=== PATIENT | female | born 1945 | race African-American/Black ===

== ENCOUNTER 2016-04-04 10:55 | Emergency (ER) | payer MEDICAID ==
[2016-04-04] MEDS ORDERED: DUONEB 0.5 MG-3 MG/3 ML SOLN IH ONE (12:06)
[2016-04-04 12:17] LABS: Basophils % (Auto) 0.9 % (0.0-1.8); Eosinophils % (Auto) 1.9 % (0.0-4.3); Hematocrit 38.3 % (30.3-42.9); Hemoglobin 12.6 gm/dl (10.1-14.3); Mean Corpuscular HGB Conc 33 % (30-34); Mean Corpuscular Hemoglobin 30 pg (28-32); Mean Corpuscular Volume 91 fl (79-97); Platelet Count 268 K/mm3 (140-440); Red Blood Count 4.21 M/mm3 (3.65-5.03); Red Cell Distribution Width 12.5 % (13.2-15.2); White Blood Count 6.2 K/mm3 (4.5-11.0)
--- NOTE | 2016-04-04 12:25 | Emergency Department Report ---
HPI - General Chief Complaint: Abdominal Pain Time Seen by Provider: 04/04/16 11:52 - HPI HPI: Chief complaint: Cough, abdominal pain HPI: Patient is a 71-year-old Upper Sor[place] female with a history of hypertension and elevated cholesterol is been having a cough with for chest pain for the last 3 days. Patient states she is coughing so much that she does feel short of breath at times. Patient has been having chills and has been coughing up yellow-brown sputum. Patient denies any nausea vomiting or diarrhea and also denies constipation and states her bowels are normal. Patient is having some dysuria. Patient states her head hurts only when she coughs. Mode of arrival: [EMS] Source: [Patient] and [family member] Began: 3 days ago Duration: 3 days Context: Patient is a nonsmoker with no history of asthma or COPD Quality: Pleuritic chest pain, dull lower abdominal pain left greater than right and dull headache in the back of her head only when she coughs when she coughs Severity: 6 out of 10 Improved with: Nothing Worsened with: See above Associated signs and symptoms: See above ED Past Medical Hx - Past Medical History Hx Hypertension: Yes Hx Diabetes: Yes Hx GERD: Yes Hx Arthritis: Yes Hx Psychiatric Treatment: Yes (PTSD) Additional medical history: hyperlipidemia,glaucoma - Surgical History Past Surgical History?: No - Social History Smoking Status: Never Smoker Substance Use Type: None - Medications Home Medications: Home Medications Medication Instructions Recorded Confirmed Last Taken Type AtorvaSTATin [Lipitor] 40 mg PO DAILY 11/15/14 11/15/14 Unknown History Famotidine [Pepcid] 20 mg PO BID 11/15/14 11/15/14 Unknown History Nortriptyline [Pamelor] 10 mg PO QHS 11/15/14 11/15/14 Unknown History amLODIPine [Norvasc] 5 mg PO DAILY 11/15/14 11/15/14 Unknown History ALBUTEROL Inhaler [ProAir HFA 2 puff IH QID PRN #1 inhalation 04/04/16 Unknown Rx Inhaler] Azithromycin [Zithromax TAB] 500 mg PO QDAY #3 tablet 04/04/16 Unknown Rx Benzonatate [Tessalon Perles] 100 mg PO Q6HR #14 capsule 04/04/16 Unknown Rx ED Review of Systems ROS: Stated complaint: CHEST AND ABD PAIN Other details as noted in HPI ROS Constitutional: No fever ENT: No uri symptoms Cardiovascular: See HPI Respiratory: See HPI GI: No nausea vomiting or diarrhea : No dysuria frequency or urgency, Skin: No rash Neuro: No focal weakness or numbness Psych: No depression Broderick/lymph: No edema Physical Exam - Physical Exam Vital Signs: Vital Signs 04/04/16 11:09 Pulse Rate 70 Respiratory 16 Rate Blood Pressure 140/90 O2 Sat by Pulse 99 Oximetry Physical Exam: GENERAL: The patient is a thin elderly [place] Sor[place] female with a frequent cough. HEENT: Normocephalic. Atraumatic. Extraocular motions are intact. Patient has moist mucous membranes. NECK: Supple. No meningitic signs are noted. There is no adenopathy noted. CHEST/LUNGS: Few expiratory wheezes and frequent coughing. There is no respiratory distress noted. HEART/CARDIOVASCULAR: Regular. There is no tachycardia. There is no gallop rub or murmur. ABDOMEN: Abdomen is soft, lower abdominal tenderness without rebound or guarding. Patient has normal bowel sounds. There is no abdominal distention. SKIN: There is no rash. There is no edema. There is no diaphoresis. NEURO: The patient is awake, alert, and oriented. The patient is cooperative. The patient has no focal neurologic deficits. The patient has normal speech. MUSCULOSKELETAL: There is no tenderness or deformity. There is no limitation range of motion. There is no evidence of acute injury. ED Course Vital Signs 04/04/16 11:09 Pulse Rate 70 Respiratory 16 Rate Blood Pressure 140/90 O2 Sat by Pulse 99 Oximetry - Reevaluation(s) Reevaluation #1: 04/04/16 Patient given a nebulizer treatment with improvement of her breathing. Reevaluation #2: 04/04/16 15:54 Patient given a [place] with improvement of her pain and coughing. ED Medical Decision Making - Lab Data Result diagrams: 04/04/16 11:44 04/04/16 11:44 Laboratory Tests 04/04/16 04/04/16 11:44 11:44 Troponin T < 0.010 Lipase 25 Urinalysis within normal limits. - EKG Data -: EKG Interpreted by Tx EKG shows normal: sinus rhythm Rate: normal (72) - EKG Data When compared to previous EKG there are: no significant change Interpretation: normal EKG - Radiology Data Radiology results: report reviewed (chest x-ray shows no acute process. CT abdomen shows no acute process.) Critical care attestation.: If time is entered above; I have spent that time in minutes in the direct care of this critically ill patient, excluding procedure time. ED Disposition Clinical Impression: Bronchitis, acute Qualifiers: Bronchitis organism: unspecified organism Qualified Code(s): J20.9 - Acute bronchitis, unspecified Disposition: DISCHARGED TO HOME OR SELFCARE Is pt being admited?: No Does the pt Need Aspirin: No Condition: Stable Instructions: Abdominal Pain (ED), Acute Bronchitis (ED) Prescriptions: ALBUTEROL Inhaler [ProAir HFA Inhaler] 2 puff IH QID PRN #1 inhalation PRN Reason: Shortness Of Breath Azithromycin [Zithromax TAB] 500 mg PO QDAY #3 tablet Benzonatate [Tessalon Perles] 100 mg PO Q6HR #14 capsule Referrals: PRIMARY CARE, [Primary Care Provider] - 3-5 Days Time of Disposition: 15:56
--- NOTE | 2016-04-04 12:57 | XRay Report ---
AP CHEST: HISTORY: Shortness of breath AP view of the chest demonstrates a normal mediastinal and cardiac contour with clear lungs and normal bony and soft tissue structures. IMPRESSION: Unremarkable AP chest.
[2016-04-04 13:30] LABS: Alanine Aminotransferase 14 units/L (7-56); Alkaline Phosphatase 113 units/L (35-129); Anion Gap 20 mmol/L; Bilirubin,Total 0.3 mg/dL (0.1-1.2); Blood Urea Nitrogen 10 mg/dL (7-17); Calcium 9.1 mg/dL (8.4-10.2); Carbon Dioxide 25 mmol/L (22-30); Glucose 99 mg/dL (65-100); Potassium 3.8 mmol/L (3.6-5.0); Sodium 141 mmol/L (137-145); Total Protein 8.2 g/dL (6.3-8.2)
[2016-04-04] MEDS ORDERED: NACL ONE (13:48)
[2016-04-04] MEDS ORDERED: NACL 0.9% 1000 ML IV ONE (13:48)
[2016-04-04] MEDS ORDERED: NORCO 10/325 ONE (14:46)
[2016-04-04] MEDS ORDERED: NORCO 5/325 PO ONE (14:51)
[2016-04-04] MEDS ORDERED: NORCO 5/325 ONE (14:51)
[2016-04-04 15:46] LABS: Bilirubin,Urine NEG (Negative); Blood,Urine NEG (Negative); Ketones,Urine NEG (Negative); Leukocyte Esterase,Urine NEG (Negative); Nitrite,Urine NEG (Negative); Protein,Urine <15 mg/dL mg/dL (Negative); Urobilinogen,Urine < 2.0 mg/dL (<2.0); WBC,Urine < 1.0 /HPF (0.0-6.0)
--- NOTE | 2016-04-04 15:51 | Cat Scan Report ---
FINAL REPORT PROCEDURE: CT ABDOMEN PELVIS W CON TECHNIQUE: Computerized axial tomography of the abdomen and pelvis was performed after the IV injection of iodinated nonionic contrast. Oral contrast was not administered limiting evaluation of the bowel. HISTORY: abdominal pain COMPARISON: None FINDINGS: Visualized lower thorax: Mild bibasilar subsegmental atelectasis. Liver: No focal abnormality. Spleen: Normal size and attenuation. Gallbladder and biliary system: Normal. Pancreas: Atrophic without focal lesion. Adrenals: Normal. Kidneys: Normal. GI tract: No bowel obstruction. Sigmoid diverticulosis. Appendix normal.. Lymph nodes and mesentery: Normal. Vasculature: Mild calcific atherosclerosis. No abdominal aortic aneurysm. Bladder: Normal. Reproductive organs: Hysterectomy. Peritoneum: No free fluid. Musculoskeletal structures: Degenerative changes of the spine. Other: None. IMPRESSION: No CT evident acute abdominal/pelvic pathology. Sigmoid diverticulosis. Atrophic pancreas Degenerative changes of the spine.
[2016-04-04 16:41] VITALS: BP 120/60
== END 2016-04-04 16:49 | disposition home or self-care (01) ==
LOC: ED 10:55
DX: J20.9 Acute bronchitis, unspecified (principal); R30.0 Dysuria; R07.2 Precordial pain; I10 Essential (primary) hypertension; E11.9 Type 2 diabetes mellitus without complications; K21.9 Gastro-esophageal reflux disease without esophagitis; M19.90 Unspecified osteoarthritis, unspecified site; E78.00 Pure hypercholesterolemia, unspecified; H40.9 Unspecified glaucoma
CPT/HCPCS: 36415; 71010; 74177; 80053; 81001; 83690; 84484; 85025; 93005; 93010; 94640; 96360; 96361; 99285; J7030; Q9967

== ENCOUNTER 2016-04-15 12:29 | Emergency (ER) | payer MEDICARE ==
--- NOTE | 2016-04-15 13:09 | XRay Report ---
Single view chest: Compared to 04/04/16. History: Shortness of breath. Findings: Borderline cardiomegaly. Trachea is midline. No consolidation, pneumothorax or pleural effusion. Impression: No acute cardiopulmonary findings.
[2016-04-15] MEDS ORDERED: DUONEB 0.5 MG-3 MG/3 ML SOLN IH ONE (13:15)
[2016-04-15] MEDS ORDERED: NACL 0.9% 1000 ML 1,000 ML IV ONE (13:15)
[2016-04-15 13:26] LABS: Basophils % (Auto) 0.9 % (0.0-1.8); Eosinophils % (Auto) 1.1 % (0.0-4.3); Hematocrit 39.6 % (30.3-42.9); Hemoglobin 13.2 gm/dl (10.1-14.3); Mean Corpuscular HGB Conc 33 % (30-34); Mean Corpuscular Hemoglobin 31 pg (28-32); Mean Corpuscular Volume 91 fl (79-97); Platelet Count 359 K/mm3 (140-440); Red Blood Count 4.34 M/mm3 (3.65-5.03); Red Cell Distribution Width 12.9 % (13.2-15.2); White Blood Count 8.8 K/mm3 (4.5-11.0)
--- NOTE | 2016-04-15 13:36 | Emergency Department Report ---
HPI - General Time Seen by Provider: 04/15/16 12:48 - HPI HPI: This is a 71-year-old [place] female who presents to the emergency department via EMS from home with complaint of shortness of breath, generalized weakness and cough that has been going on for the past 2 days. She has some intermittent chills and a subjective fever. Patient was recently here and diagnosed with bronchitis but said she had some resolution in the interim. She went to see her new PCP recently and was put on some cough medication but that did not seem to help. Patient does not have any history of VT, CVA, PE/DVT. She has a past medical history of bronchitis, hypertension, osteoporosis and GERD. No recent travel or sick contacts at home. She denies any chest pain, diaphoresis, back pain but does have a nonspecific burning sensation throughout her body. She also says that she feels very tired. ED Past Medical Hx - Past Medical History Hx Hypertension: Yes Hx Diabetes: Yes (EMS denied DM) Hx GERD: Yes Hx Arthritis: Yes Hx Psychiatric Treatment: Yes (PTSD) Additional medical history: hyperlipidemia,glaucoma - Surgical History Hx Appendectomy: ([facility]) - Social History Smoking Status: Unknown if ever smoked Substance Use Type: None - Medications Home Medications: Home Medications Medication Instructions Recorded Confirmed Last Taken Type AtorvaSTATin [Lipitor] 40 mg PO DAILY 11/15/14 04/04/16 Unknown History Famotidine [Pepcid] 20 mg PO BID 11/15/14 04/04/16 Unknown History Nortriptyline [Pamelor] 10 mg PO QHS 11/15/14 04/04/16 Unknown History amLODIPine [Norvasc] 5 mg PO DAILY 11/15/14 04/04/16 Unknown History Azithromycin [Zithromax TAB] 500 mg PO QDAY #3 tablet 04/04/16 Unknown Rx Benzonatate [Tessalon Perles] 100 mg PO Q6HR #14 capsule 04/04/16 Unknown Rx ALBUTEROL Inhaler [ProAir HFA 2 puff IH QID PRN #1 inhalation 04/15/16 Unknown Rx Inhaler] guaiFENesin/CODEINE [Robitussin AC] 5 ml PO Q6H PRN #80 ml 04/15/16 Unknown Rx ED Review of Systems ROS: Stated complaint: DIFF BREATHING Other details as noted in HPI Comment: All other systems reviewed and negative Constitutional: chills, fever (subjective) Eyes: denies: eye pain, eye discharge, vision change ENT: denies: ear pain, throat pain Respiratory: cough, shortness of breath Cardiovascular: denies: chest pain, edema Gastrointestinal: denies: abdominal pain, nausea, diarrhea Genitourinary: denies: urgency, dysuria, discharge Musculoskeletal: myalgia. denies: joint swelling Skin: denies: rash, lesions Neurological: denies: headache, weakness, paresthesias Physical Exam - Physical Exam Vital Signs: Vital Signs 04/15/16 12:53 Temperature 98.7 F Pulse Rate 74 Respiratory 20 Rate Blood Pressure 141/56 [Right] O2 Sat by Pulse 100 Oximetry Physical Exam: GENERAL: The patient is well-developed well-nourished. HEENT: Normocephalic. Atraumatic. Extraocular motions are intact. Patient has moist mucous membranes. Pupils equal reactive to light bilaterally. NECK: Supple. Trachea is midline. CHEST/LUNGS: Mild expiratory wheezing. There is a dry cough heard during examination. No tachypnea or accessory muscle use. There is no respiratory distress noted. HEART/CARDIOVASCULAR: Regular. There is no tachycardia. There is no gallop rub or murmur. ABDOMEN: Abdomen is soft, nontender. Patient has normal bowel sounds. There is no abdominal distention. SKIN: There is no rash. There is no edema. There is no diaphoresis. NEURO: The patient is awake, alert, and oriented. The patient is cooperative. The patient has no focal neurologic deficits. The patient has normal speech. MUSCULOSKELETAL: There is no tenderness or deformity. There is no limitation range of motion. There is no evidence of acute injury. ED Course Vital Signs 04/15/16 12:53 Temperature 98.7 F Pulse Rate 74 Respiratory 20 Rate Blood Pressure 141/56 [Right] O2 Sat by Pulse 100 Oximetry ED Medical Decision Making - Lab Data Result diagrams: 04/15/16 12:55 04/15/16 12:55 - EKG Data -: EKG Interpreted by Me EKG shows normal: sinus rhythm, axis, intervals, QRS complexes, ST-T waves Rate: normal - EKG Data When compared to previous EKG there are: previous EKG unavailable Interpretation: normal EKG - Radiology Data Radiology results: report reviewed, image reviewed interpreted by me: Chest x-ray did not show any acute process. Heart is normal shape and size. No effusions. No pneumothorax. No signs of pneumonia seen. CT of the head does not show any acute process including no hemorrhage, mass, shift, diffuse edema or skull fracture. - Medical Decision Making This patient presents with a few days of some shortness of breath and coughing. She also complains of some generalized fatigue and/or weakness and some dizziness. Patient's lungs show some mild expiratory wheezing but otherwise no respiratory distress. The cough is present on examination. Patient's EKG does not show any signs of ST elevation VT, ischemia or dysrhythmia. Chest x-ray does not show any pneumonia, pleural effusions, pneumothorax or any acute process. Patient's labs have been unremarkable including negative troponin, no signs of infection, and no electrolyte abnormalities. Patient later complained of this nonspecific dizziness so a CT of the head was done but it came back showing no bleed, shift, mass or any acute process. Patient was given some breathing treatments, IV fluid resuscitation, steroids and a cough suppressant. Upon reevaluation she is feeling better. She was seen ambulatory and appears stable. She's been encouraged to follow-up with her primary care doctor and return to the ER with any worsening of her symptoms or any acute distress. - Differential Diagnosis bronchitis, asthma, pneumonia, VT, vertigo Critical Care Time: No Critical care attestation.: If time is entered above; I have spent that time in minutes in the direct care of this critically ill patient, excluding procedure time. ED Disposition Clinical Impression: Bronchitis, Dizziness Disposition: DISCHARGED TO HOME OR SELFCARE Is pt being admited?: No Does the pt Need Aspirin: No Condition: Stable Instructions: Chronic Bronchitis (ED) Additional Instructions: Please follow-up with your primary care doctor in the next few days. Return to the emergency department with any worsening of your symptoms or any acute distress. You've been prescribed a medication that is sedating. Therefore this medication cannot be mixed with alcohol, or taken prior to driving, working, or being responsible for children. Prescriptions: ALBUTEROL Inhaler [ProAir HFA Inhaler] 2 puff IH QID PRN #1 inhalation PRN Reason: Shortness Of Breath guaiFENesin/CODEINE [Robitussin AC] 5 ml PO Q6H PRN #80 ml PRN Reason: Cough Referrals: PRIMARY CARE, [Primary Care Provider] - 3-5 Days Time of Disposition: 17:28
[2016-04-15 13:47] LABS: Alanine Aminotransferase 17 units/L (7-56); Albumin 3.9 g/dL (3.9-5); Alkaline Phosphatase 121 units/L (35-129); Bilirubin,Total 0.3 mg/dL (0.1-1.2); Blood Urea Nitrogen 9 mg/dL (7-17); Calcium 9.1 mg/dL (8.4-10.2); Carbon Dioxide 23 mmol/L (22-30); Glucose 88 mg/dL (65-100); Potassium 3.6 mmol/L (3.6-5.0); Sodium 141 mmol/L (137-145)
[2016-04-15 13:51] LABS: Anion Gap 20 mmol/L
[2016-04-15] MEDS ORDERED: ROBITUSSIN AC PO ONE (14:31)
[2016-04-15] MEDS ORDERED: MAGNESIUM SULFATE 2GM/50ML 50 ML IV ONE (15:06)
--- NOTE | 2016-04-15 17:08 | Cat Scan Report ---
FINAL REPORT EXAM: CT HEAD/BRAIN WO CON HISTORY: Dizziness TECHNIQUE: CT examination of the head without IV contrast PRIORS: None. FINDINGS: Moderate mucosal thickening left maxillary sinus. Anterior curvilinear component may reflect a small fluid level. Other paranasal sinuses are clear as are the mastoid air cells and middle ear cavities. Very small hypodensity is suggestive of a chronic lacunar infarct in the left basal ganglia. Bone windows demonstrate no fracture. There is ventricular and sulcal prominence compatible with global cerebrocortical atrophy. The brain contains no mass, mass effect, hemorrhage, or acute infarct. There is no extra-axial intracranial bleed, brain bleed, or midline shift. IMPRESSION: No acute CVA, intracranial bleed, or brain mass Left maxillary sinus disease may include a small fluid level which raises suspicion for acute sinusitis Very small chronic appearing lacunar infarct in left basal ganglia
[2016-04-15 19:01] VITALS: BP 130/76
== END 2016-04-15 17:28 | disposition home or self-care (01) ==
LOC: ED 12:29
DX: J40 Bronchitis, not specified as acute or chronic (principal); R42 Dizziness and giddiness; I10 Essential (primary) hypertension; E11.9 Type 2 diabetes mellitus without complications; K21.9 Gastro-esophageal reflux disease without esophagitis; M19.90 Unspecified osteoarthritis, unspecified site; E78.00 Pure hypercholesterolemia, unspecified; H40.9 Unspecified glaucoma
CPT/HCPCS: 36415; 70450; 71010; 80053; 83880; 84484; 85025; 87400; 93005; 93010; 94640; 96361; 96374; 99285; J2930; J3475; J7030

== ENCOUNTER 2016-04-20 21:14 | Emergency (ER) | payer MEDICARE, MEDICAID ==
--- NOTE | 2016-04-20 23:04 | Emergency Department Report ---
HPI - General Chief Complaint: Abdominal Pain Time Seen by Provider: 04/20/16 22:22 - HPI HPI: This is a 71-year-old [place]ol[place] female presents to the emergency department by EMS with complaint of some abdominal pain, rectal pain, and constipation. Patient says she has not had a bowel movement since yesterday. She feels like the stool is just inside of the rectum but if she cannot get it out. She tried some unnamed "liquid" for symptoms without any relief. She denies any fever, nausea, vomiting, dysuria. Patient was recently at [facility] for upper respiratory infection and bronchitis like symptoms. She did not receive anything for her symptoms by EMS. Patient only speaks Congolese so a documentation writer was used from the language line. ED Past Medical Hx - Past Medical History Previous Medical History?: Yes Hx Hypertension: Yes Hx Diabetes: Yes (EMS denied DM) Hx GERD: Yes Hx Arthritis: Yes Hx Psychiatric Treatment: Yes (PTSD) Additional medical history: hyperlipidemia,glaucoma - Surgical History Past Surgical History?: Yes Hx Appendectomy: ([facility]LEY) - Social History Smoking Status: Unknown if ever smoked - Medications Home Medications: Home Medications Medication Instructions Recorded Confirmed Last Taken Type AtorvaSTATin [Lipitor] 40 mg PO DAILY 11/15/14 04/21/16 Unknown History Famotidine [Pepcid] 20 mg PO BID 11/15/14 04/21/16 Unknown History Nortriptyline [Pamelor] 10 mg PO QHS 11/15/14 04/21/16 Unknown History amLODIPine [Norvasc] 5 mg PO DAILY 11/15/14 04/21/16 Unknown History Azithromycin [Zithromax TAB] 500 mg PO QDAY #3 tablet 04/04/16 04/21/16 Unknown Rx Benzonatate [Tessalon Perles] 100 mg PO Q6HR #14 capsule 04/04/16 04/21/16 Unknown Rx ALBUTEROL Inhaler [ProAir HFA 2 puff IH QID PRN #1 inhalation 04/15/16 04/21/16 Unknown Rx Inhaler] guaiFENesin/CODEINE [Robitussin AC] 5 ml PO Q6H PRN #80 ml 04/15/16 04/21/16 Unknown Rx Docusate Sodium [Colace] 100 mg PO BID PRN #20 capsule 04/21/16 Unknown Rx ED Review of Systems ROS: Stated complaint: ABDOMINAL PAIN Other details as noted in HPI Comment: All other systems reviewed and negative Constitutional: denies: chills, fever Eyes: denies: eye pain, eye discharge, vision change ENT: denies: ear pain, throat pain Respiratory: denies: cough, shortness of breath, wheezing Cardiovascular: denies: chest pain, palpitations Gastrointestinal: abdominal pain, constipation, other (rectal pain). denies: nausea, vomiting Genitourinary: denies: urgency, dysuria, discharge Musculoskeletal: denies: back pain, joint swelling, arthralgia Skin: denies: rash, lesions Neurological: denies: headache, weakness, paresthesias Physical Exam - Physical Exam Physical Exam: GENERAL: The patient is well-developed well-nourished. HEENT: Normocephalic. Atraumatic. Extraocular motions are intact. Patient has moist mucous membranes. Pupils equal reactive to light bilaterally. NECK: Supple. Trachea is midline. CHEST/LUNGS: Clear to auscultation. There is no respiratory distress noted. HEART/CARDIOVASCULAR: Regular. There is no tachycardia. There is no gallop rub or murmur. ABDOMEN: Abdomen is soft mild tenderness to palpation of the abdomen. No guarding or rebound tenderness. No peritoneal signs. Patient has normal bowel sounds. There is no abdominal distention. SKIN: There is no rash. There is no diaphoresis. NEURO: The patient is awake, alert, and oriented. The patient is cooperative. The patient has no focal neurologic deficits. The patient has normal speech. MUSCULOSKELETAL: There is no tenderness or deformity. There is no limitation range of motion. There is no evidence of acute injury. RECTAL: Patient has a area to the posterior portion of the rectum and/or the perineum that is a area of swelling or a raised area from the skin that is tender and is slightly indurated but not rigid. This could be consistent with a nonthrombosed hemorrhoid. ED Medical Decision Making - Lab Data Result diagrams: 04/20/16 23:08 04/20/16 23:08 - Radiology Data Radiology results: report reviewed, image reviewed interpreted by me: Chest x-ray did not show any acute process. Heart is normal shape and size. No effusions. No pneumothorax. No signs of pneumonia seen. X-ray of the abdomen shows a large amount of stool throughout the intestines and some nonspecific bowel gas but no signs of obstruction. CT of the abdomen and pelvis with IV contrast shows no sign of intestinal or urinary tract obstruction. No ileus or enteritis. The appendix is normal. Moderate fecal debris throughout the colon, constipation is possible. - Medical Decision Making 71-year-old female presents to the emergency department with a one-day history of some abdominal and rectal pain as well as complaint of constipation. Patient 's labs are mostly unremarkable except for the patient has a leukocytosis of about 20,000. There is a left shift but no bandemia. There are no electrolyte abnormalities, renal insufficiency, glucose abnormalities. She has normal belly labs including LFTs, lipase and bilirubin. Urinalysis does not show any urinary tract infection. The patient's vital signs are stable throughout her ED course including being afebrile. An acute abdominal series was done that shows some signs of increased stool volume but otherwise no signs of obstruction or any acute process. However secondary to her complaint of discomfort and the leukocytosis, a CT of the abdomen and pelvis was done. This showed no signs of intestinal or urinary tract obstruction. No ileus or enteritis. No appendicitis. There is a large fecal debris that could be constipation. On physical exam patient had an area of swelling just posterior to the rectum, about 6 o'clock position. This could be nonthrombosed hemorrhoid versus early abscess. However no signs of soft tissue infection were seen on the CT scan. During the patient's workup the patient had multiple bowel movements. Patient is feeling better. For these reasons the patient will be discharged home to follow-up with her primary care doctor. She'll be given some stool softeners. She will return to the ER with any worsening of her symptoms or any acute distress. - Differential Diagnosis constipation, bowel obstruction, diverticulitis, colitis, hemorrhoids Critical Care Time: No Critical care attestation.: If time is entered above; I have spent that time in minutes in the direct care of this critically ill patient, excluding procedure time. ED Disposition Clinical Impression: Abdominal pain Qualifiers: Abdominal location: generalized Qualified Code(s): R10.84 - Generalized abdominal pain Constipation Qualifiers: Constipation type: unspecified constipation type Qualified Code(s): K59.00 - Constipation, unspecified Disposition: DISCHARGED TO HOME OR SELFCARE Is pt being admited?: No Condition: Stable Instructions: Abdominal Pain (ED), Constipation (ED) Additional Instructions: Please follow-up with your primary care doctor the next few days. Return to the emergency department with any worsening of your symptoms, intractable fever , or any acute distress. Prescriptions: Docusate Sodium [Colace] 100 mg PO BID PRN #20 capsule PRN Reason: Constipation Referrals: PRIMARY CARE, [Primary Care Provider] - 3-5 Days Time of Disposition: 05:17
[2016-04-20 23:37] LABS: Mean Corpuscular HGB Conc 34 % (30-34); Mean Corpuscular Hemoglobin 31 pg (28-32); Mean Corpuscular Volume 92 fl (79-97); Platelet Count 298 K/mm3 (140-440); Red Blood Count 4.23 M/mm3 (3.65-5.03); Red Cell Distribution Width 13.1 % (13.2-15.2)
[2016-04-20 23:39] LABS: White Blood Count 20.9 K/mm3 (4.5-11.0)
[2016-04-20 23:41] LABS: Alanine Aminotransferase 17 units/L (7-56); Albumin 4.5 g/dL (3.9-5); Albumin/Globulin Ratio 1.1 %; Alkaline Phosphatase 128 units/L (35-129); Anion Gap 21 mmol/L; Bilirubin,Total 0.6 mg/dL (0.1-1.2); Blood Urea Nitrogen 15 mg/dL (7-17); Calcium 9.1 mg/dL (8.4-10.2); Carbon Dioxide 21 mmol/L (22-30); Chloride 98.9 mmol/L (98-107); Glucose 173 mg/dL (65-100); Lipase 28 units/L (13-60); Sodium 137 mmol/L (137-145); Total Protein 8.5 g/dL (6.3-8.2)
[2016-04-20 23:46] LABS: INR 0.96 (0.87-1.13)
[2016-04-20 23:47] LABS: Bilirubin,Direct < 0.2 mg/dL (0-0.2); Bilirubin,Indirect 0.4 mg/dL
[2016-04-21] MEDS ORDERED: NACL 0.9% 1000 ML 1,000 ML IV ONE (00:16)
[2016-04-21 00:22] LABS: Basophils % (Manual) 0 % (0.0-1.8); Blastocytes % (Manual) 0 %; Diff Status Complete; Eosinophils % (Manual) 0 % (0.0-4.3); RBC Morphology Normal
--- NOTE | 2016-04-21 01:30 | Cat Scan Report ---
FINAL REPORT PROCEDURE: CT ABDOMEN PELVIS W CON TECHNIQUE: Computerized axial tomography of the abdomen and pelvis was performed after the IV injection of iodinated nonionic contrast. HISTORY: Abd pain COMPARISON: No prior studies are available for comparison. FINDINGS: Visualized lower thorax: No significant abnormality. Liver: Normal size and attenuation. Spleen: Normal size and attenuation. Gallbladder and biliary system: Normal. Pancreas: Normal. Adrenals: Normal. Kidneys: Both kidneys have a normal size. No hydronephrosis is seen. No renal stones or masses.. GI tract: The stomach is normal. The small bowel has a normal caliber. No obstruction, ileus or enteritis. The cecum and appendix are normal. Moderate fecal debris throughout the colon is noted.. Lymph nodes and mesentery: Normal. Vasculature: Mild atherosclerosis of the aorta and branching vessels. Bladder: The urinary bladder is significantly distended.. Reproductive organs: The uterus is normal. No pelvic masses are noted.. Peritoneum: No free fluid. Musculoskeletal structures: No significant abnormality. Other: None. IMPRESSION: No evidence of intestinal or urinary tract obstruction. No ileus or enteritis. The appendix is normal. Moderate fecal debris throughout the colon, constipation is possible.
[2016-04-21 03:36] LABS: Bilirubin,Urine NEG (Negative); Blood,Urine SM (Negative); Ketones,Urine NEG (Negative); Leukocyte Esterase,Urine NEG (Negative); Mucus,Urine FEW /HPF; Nitrite,Urine NEG (Negative); Protein,Urine <15 mg/dL mg/dL (Negative); Urobilinogen,Urine < 2.0 mg/dL (<2.0)
[2016-04-21 05:31] VITALS: BP 123/44
== END 2016-04-21 05:35 | disposition home or self-care (01) ==
LOC: ED 21:14
DX: K59.00 Constipation, unspecified (principal); R10.84 Generalized abdominal pain; I10 Essential (primary) hypertension; E11.9 Type 2 diabetes mellitus without complications; K21.9 Gastro-esophageal reflux disease without esophagitis; M19.90 Unspecified osteoarthritis, unspecified site; H40.9 Unspecified glaucoma; E78.00 Pure hypercholesterolemia, unspecified
CPT/HCPCS: 36415; 51701; 74022; 74177; 80048; 80074; 81001; 82140; 83690; 84484; 85007; 85025; 85610; 96360; 99285; J7030; Q9966